=== PATIENT | male | born 1960 | race Caucasian/White ===

== ENCOUNTER 2017-05-20 22:46 | Emergency (ER) | payer BC ==
[~2017-05-20 22:46] MED LIST: Iopamidol 370 76% 100 ML VIAL ONE
[2017-05-20] MEDS ORDERED: methylPREDNISolone Sod Succ/PF 125 MG/2 ML VIAL ONE (23:45)
--- NOTE | 2017-05-21 00:01 | RAD ---
CHEST ONE VIEW 05/20/17 HISTORY: Wheezing and cough for one week. COMPARISON: None. FINDINGS: Lungs are clear. No pneumothorax or effusion. Cardiac silhouette and mediastinal contours are normal . IMPRESSION: No acute cardiopulmonary process. POS: [facility]
[2017-05-21] MEDS ORDERED: Albuterol Sulfate 2.5 mg/3 ml Neb ONE ×2 (00:02→00:31)
[2017-05-21 01:18] LABS: #Basophils 0.2 thou/uL (0.0-0.2); #Eosinphils 0.9 thou/uL (0.0-0.7); #Lymphocytes 1.6 thou/uL (1.20-3.40); #Monocytes 1.2 thou/uL (0.11-0.59); #Neutrophils 9.4 thou/uL (1.40-6.50); %Basophils 1.5 % (0.0-1.0); %Eosinophils 6.8 % (0.0-10.0); %Lymphocytes 11.8 % (21.0-51.0); %Monocytes 8.8 % (0.0-10.0); %Neutrophils 71.1 % (42.0-75.0); Hemoglobin 15.1 g/dL (14.0-18.0); Mean Corpuscular HGB CONC 35.9 g/dL (32.0-36.0); Mean Corpuscular Hemoglobin 31.3 pg (27.0-31.0); Mean Corpuscular Volume 87.3 fl (80.0-94.0); Mean Platelet Volume 6.1 fL (7.4-10.4); Platelet Count 223 thou/uL (130-400); RBC Distribution Width 11.2 % (11.5-14.5); Red Blood Cell (RBC) Count 4.83 mill/uL (4.70-6.10); White Blood Cell (WBC) Count 13.3 thou/uL (4.8-10.8)
[2017-05-21 01:34] LABS: ALT (SGPT) 55 U/L (8-55); AST (SGOT) 24 U/L (5-34); Albumin 4.2 g/dL (3.5-5.0); Alkaline Phosphatase 139 U/L (40-150); Anion Gap 15 mmol/L (10-20); BUN (Urea Nitrogen) 16 mg/dL (8.4-25.7); Bilirubin, Total 0.6 mg/dL (0.2-1.2); CK (CPK) 62 U/L (30-200); CKMB 1.6 ng/mL (0-6.6); Calc. Creatinine Clearance 0 mL/min (70-130); Calcium 9.7 mg/dL (7.8-10.44); Carbon Dioxide 20 mmol/L (22-29); Chloride 107 mmol/L (98-107); Estimated GFR-MDRD Greater than 90; Globulin 3.1 g/dL (2.4-3.5); Glucose 125 mg/dL (70-105); Potassium 3.8 mmol/L (3.5-5.1); Protein, Total 7.3 g/dL (6.0-8.3); Sodium 138 mmol/L (136-145); Troponin I Less than 0.010 ng/mL (< 0.028)
[2017-05-21] MEDS ORDERED: cefTRIAXone\\ROCEPHIN 1 GM VIAL ONE (03:53)
[2017-05-21] MEDS ORDERED: Sodium Chloride 0.9% 100 ML ONE (03:53)
--- NOTE | 2017-05-21 07:52 | CT ---
PRELIMINARY REPORT/[facility]/EMERGENCY AFTER HOURS PROCEDURE: EXAM: CT Angiography Chest With Intravenous Contrast CLINICAL HISTORY: 56 years old, male; Signs and symptoms and abnormal findings; Abnormal diagnostic tests; Elevated d- dimer; Cough and shortness of breath and wheezing and other: Weakness; Symptoms not specified; Patie nt HX: Pt with 1 week of cough and SOB, associated with weakness and dizziness; TECHNIQUE: Axial computed tomographic angiography images of the chest with intravenous contrast using pulmonary embolism protocol. All CT scans at this facility use one or more dose reduction techniques, viz.: a utomated exposure control; ma/kV adjustment per patient size (including targeted exams where dose is matched to indication; i.e. head); or iterative reconstruction technique. Coronal reformatted images were created and reviewed. CONTRAST: 96 mL of Isovue 370 administered intravenously. COMPARISON: No relevant prior studies available. FINDINGS: Pulmonary arteries: Limited study due to suboptimal contrast opacification of the pulmonary arteries , however there is no obvious central pulmonary embolism. Aorta: No acute findings. No thoracic aortic aneurysm. Lungs: Patchy groundglass and small nodular opacities, which could be infectious/inflammatory and fo naomy/nodular probable atelectatic opacities/scarring. Peribronchial thickening. Pleural space: No acute findings. No significant effusion. No pneumothorax. Heart: Normal heart size. Mild coronary calcifications. No significant pericardial effusion. No evid ence of RV dysfunction. Bones/joints: No acute fracture. No dislocation. Soft tissues: No acute findings. Lymph nodes: Mild bilateral hilar and mediastinal adenopathy. IMPRESSION: Limited study due to suboptimal contrast opacification of the pulmonary arteries, however there is n o obvious central pulmonary embolism. Patchy groundglass and small nodular opacities, which could be infectious/inflammatory and focal/nod ular probable atelectatic opacities/scarring. Mild bilateral hilar and mediastinal adenopathy. Recommend clinical correlation and followup. Thank you for allowing us to participate in the care of your patient. Dictated and Authenticated by: Jean-Claude Loving MD 05/21/2017 3:40 AM Central Time ([place] \T\ [place]) FINAL REPORT CT PULMONARY ANGIO STUDY: Suboptimal opacification of the pulmonary arteries limits this exam. There is no evidence of proxim al pulmonary embolus. More peripheral pulmonary emboli cannot be excluded. There is mild mediastin al and hilar adenopathy and there are nodular parenchymal opacities in the upper lung [place]. I am in agreement with the preliminary report. POS: [facility]
== END 2017-05-21 04:59 | disposition left against medical advice (07) ==
LOC: NAV ERS 22:46
DX: J20.9 Acute bronchitis, unspecified (principal); R09.02 Hypoxemia; I10 Essential (primary) hypertension; J45.909 Unspecified asthma, uncomplicated; Z87.891 Personal history of nicotine dependence; Z79.899 Other long term (current) drug therapy
CPT/HCPCS: 71010; 71275; 80053; 82550; 82553; 83880; 84484; 85025; 85379; 94640; 94760; 96365; 96372; J0696; J2930; J7050; J7611; J7620